=== PATIENT | female | born 1990 | race Caucasian/White ===

== ENCOUNTER → 2018-01-05 10:06 | Outpatient (CLI) | payer OTHER, SELFPAY ==
[2018-01-06 10:57] LABS: HIV - WCH Non-Reactive (Nonreactive)
[2018-01-06 11:41] LABS: Hep B Surface Antibodies Non Reactive (.); Hep C Antibodies <0.1 s/co ratio (0.0-0.9)
== END ==
PROVIDERS: Visit Provider Physician Assistant Surgical
DX: S51.851A Open bite of right forearm, initial encounter (principal); W50.3XXA Accidental bite by another person, initial encounter
CPT/HCPCS: 36415; 86703; 86706; 86803